=== PATIENT | male | born 1965 | race Caucasian/White ===

== ENCOUNTER 2017-01-21 12:34 | Inpatient (IN) | payer OTHER ==
[~2017-01-21] VITALS: Ht 193 cm; Wt 136.4 kg
[2017-01-21 12:54] VITALS: BP 148/100; PULSE 81; RESP 16; O2SAT 96
[2017-01-21] MEDS ORDERED: Piperacillin-Tazo 3.375 Gm Inj 3.375 GM in Dextrose 5% Minibag Plus 50 ML IV ONE (13:05)
[2017-01-21] MEDS ORDERED: Vancomycin Dose per Pharmacist XX ONE (13:05)
--- NOTE | 2017-01-21 13:07 | ED.REPORT ---
HPI-Extremity Problem Upper Date of Service Jan 21, 2017 ED Provider: Michael Erickson MD Pt is a 51 year old male with a hx of Hep C and HTN presenting to the ED from his PCP with an infection of the left olecranon bursa for IV antibiotics. Pt is scheduled for surgery tomorrow to drain the abscess. Pt injured the elbow about a year ago, and has had intermittent swelling and pain. Denies fever or any other symptoms at this time. Pt went to 2 days ago and had an I&D and cultures which showed positive for Propionibacterium acnes. Nursing Notes Stated Complaint: SENT TO ER FROM DR/PRE OP Chief Complaint: Extremity Trauma Nursing Notes Reviewed: Yes Allergies: Coded Allergies: No Known Allergies (Unverified Allergy, Unknown, 10/28/14) Scheduled Allopurinol (Allopurinol) 300 Mg Tablet 300 MG PO DAILY Bupropion ER (Bupropion ER) 150 Mg Tablet.er 150 MG PO DAILY Calcium Carbonate/Vitamin D3 (Calcium 500 + Vit D Caplet) 1 Each Tablet 1 EACH PO DAILY Multivitamin (Multivitamins) 1 Each Capsule 1 EACH PO DAILY Testosterone Cypionate (Depo-Testosterone) 200 Mg/1 Ml Depoinj 1.5 ML IM [id number] General Time Seen by MD: 12:50 Chief Complaint Arm injury left Hx Obtained From: Patient Arrived By: Walk-in Onset Occurred: 1 week ago Symptom Duration: Intermittent Location: : Elbow left Quality: Painful Severity: Current: Moderate Severity: Maximum: Severe Associated with: Reports: Swelling Recent Healthcare: No recent hospitalization, Recent doctor visit Similar Sx Previous: Yes Past Medical History Past Medical History healthy Past Surgical History L4 L5 laminectomy Family History n/a Smoking History Current Every Day Smoker, Light Tobacco Smoker Ambulatory Status Independent Review of Systems Constitutional: Denies: Fever, Weakness - generalized Skin: Reports Rash, Reports Swelling Complete sys rev & neg: except as marked. Respiratory: Denies: Shortness of breath GI: Denies: Vomiting Physical Exam Initial Vital Signs Vital Signs (First) Date Time Temp Pulse Resp B/P Pulse Ox O2 Delivery O2 Flow Rate FiO2 01/21/17 12:54 36.8 81 16 148/100 96 Room Air Initial VS: Reviewed Head / Eyes: Atraumatic, Normocephalic, PERRL ENT: Mucous membranes moist, Conjunctiva normal, No scleral icterus Respiratory: Breath sounds normal, Clear to auscultation, No respiratory distress Cardiovascular: Regular rate & rhythm, Heart sounds normal, Intact distal pulses Abdomen / GI: Soft, Non-tender, No guarding, No rebound, No distention Lower Extremities: Vascular intact, Neuro intact, No swelling, No tenderness Neurologic: Alert, Oriented, Nonfocal Psychiatric: Mood/affect normal, Behavior normal, Normal thought content General/Constitutional: Awake, Alert, No acute distress, Well appearing Doesn't appear overtly toxic Skin: Warm, Dry, Intact Left elbow large septic olecranon bursitis. Small areas of necrosis around the center of the wound. Surrounding cellulitis Interpretation & Diagnostics Interpretation & Diagnostics: Patient had outpatient cultures at the urgent care in recent weeks, these are not visible in our EMR Repeat aspiration performed today at orthopedic office, sent for testing, pending Plain radiographs performed today in the office, not repeated Cultures positive for Propionibacterium acnes Lab Results Interpretation Result Diagram: 01/21/17 1322 01/21/17 1322 Test 01/21/17 13:22 White Blood Count 9.7th/mm3 (3.8-10.1) Red Blood Count 5.50mil/mm3 (4.40-5.80) Hemoglobin 17.3g/dL (13.8-17.2) Hematocrit 49.5% (41.0-50.0) Mean Corpuscular Volume 90.0fL (81-100) Mean Corpuscular Hemoglobin 31.5pg (27.0-35.0) Mean Corpuscular Hemoglobin Concent 34.9% (32.0-37.0) Red Cell Distribution Width 13.8% (12.3-15.4) Platelet Count 321bil/L (150-400) Neutrophils (%) (Auto) 55.1% (40-74) Lymphocytes (%) (Auto) 33.1% (14-46) Monocytes (%) (Auto) 8.4% (4-12) Eosinophils (%) (Auto) 2.6% (0-5) Basophils (%) (Auto) 0.3% (0-3) Erythrocyte Sedimentation Rate 1mm/hr (0-30) Sodium Level 135mEq/L (134-144) Potassium Level 4.2mEq/L (3.5-5.2) Chloride Level 98mEq/L (97-108) Carbon Dioxide Level 23mmol/L (18-29) Blood Urea Nitrogen 15mg/dL (6-24) Creatinine 0.78mg/dL (0.76-1.27) Estimat Glomerular Filtration Rate 111mL/min (>59) Glucose Level 126mg/dL (60-99) Lactic Acid Level 1.0mmol/L (0.4-2.0) Calcium Level 10.0mg/dL (8.5-10.1) Total Bilirubin 0.5mg/dL (0.0-1.2) Aspartate Amino Transf (AST/SGOT) 24U/L (0-50) Alanine Aminotransferase (ALT/SGPT) 42U/L (0-44) Alkaline Phosphatase 49U/L (25-150) C-Reactive Protein 1.3mg/dL (0.0-0.5) Total Protein 8.3g/dL (6.4-8.4) Albumin 4.1g/dL (3.4-5.0) Lab Results Interpretation: CBC normal CMP normal ESR normal CRP elevated Blood culture x2 Lactic acid normal Re-Eval/Medical Decision Med Decision/Clinical Course This is a 51-year-old male sent in from the orthopedic office for IV antibiotics , admission, and infectious disease consultation for a septic olecranon bursitis of the left elbow. Patient describes a previous history of traumatic bursitis intimately over the past year, but in recent weeks has developed redness swelling and pain and was seen at urgent care where the bursa was tapped , and grew only skin ivan. However the recent days of increasing redness and discomfort, the patient is again seen in urgent care, and then seen an orthopedist today. Radiographs are obtained as an outpatient, and the elbow was tapped today by the orthopedist with 10-12 mL appearing material obtained. There is surrounding cellulitis, and the patient was sent to the ED for initiation of IV antibiotic, admission, and a plan for operative drainage tomorrow. She has no previous history of MRSA. Denies fevers chills or systemic symptoms. Comorbidities of mild hepatitis C. On exam he is nontoxic clinic well-appearing, but he does have a septic olecranon bursitis small areas of necrosis over the S 10 skin MRSA, his artery been aspirated today. There is no evidence of a sai septic joint, the arm is neurovascularly intact. There are no additional lesions. The patient was started on Zosyn and vancomycin, as received titrated pain medicine. As requested by the orthopedist infectious diseases been consulted. The patient is being admitted to the hospitalist service, and we made nothing by mouth over midnight for planned operative intervention tomorrow. Source of Hx: Old records Re-Evaluation/Progress : Time of Eval: 14:10 Patient Status: Condition improved Re-Evaluation/Progress Note: Discussed plan for admission. Pt understands and agrees. Consultation #1: Referral / Consult Name: Pierre Carter MD Call Returned at: 13:59 Development And Planning Engineer: Agrees with plan Note: Infectious Disease Consultation #2: Referral / Consult Name: Giovani Alejandro MD Consulted With: Orthopedic Call Returned at: 12:00 Note: Discussed the pt's history. Consultation #3: Referral / Consult Name: Edyta Rose MD Consulted With: Hospitalist Call Returned at: 13:45 Development And Planning Engineer: Will see patient, Agrees with plan, Accepts admit Differential Diagnosis: Negative: Abrasion, Colles' fracture, Compartment syndrome, Deep vein thrombosis, Elbow dislocation, Elbow fracture, Gamekeepers thumb, Humerus fracture, Open fracture Counseled Regarding: Diagnosis, Lab results, Need for follow-up, When/why to return to ED Discharge & Departure Impression: Primary Impression: Septic olecranon bursitis of left elbow Disposition: ADMITTED TO HOSPITAL Discharge Condition All VS Reviewed: Yes Condition: Improved Referrals: Baljit Reynoso DO (PCP) Stephanie Attestation Portions of this note were transcribed by Tari Charlton. I, Dr. Erickson personally performed the history, physical exam and medical decision-making; I reviewed and confirmed the accuracy of the information in the transcribed note. Signed by: Stephanie George, 01/21/17 at 1410. copies to: Baljit Reynoso Matthew F MD Jan 21, 2017 13:07 TARI CHARLTON Jan 21, 2017 13:34
[2017-01-21] MEDS ORDERED: Vancomycin Inj 2,000 MG in 0.9% Sodium Chloride 500 ML IV ONE (13:35)
[2017-01-21] MEDS ORDERED: Ondansetron 2 mg/mL 2 mL Inj IVPUSH ONE (13:35)
[2017-01-21] MEDS ORDERED: HYDROmorphone 0.5 mg/0.5 mL iSecure Syringe IVPUSH PRN (13:35)
[2017-01-21 13:37] LABS: BASOPHILS % (AUTO) 0.3 % (0-3); EOSINOPHILS % (AUTO) 2.6 % (0-5); MONOCYTES % (AUTO) 8.4 % (4-12); Mean Corpuscular Hemoglobin 31.5 pg (27.0-35.0); NEUTROPHILS % (AUTO) 55.1 % (40-74); Platelet Count 321 bil/L (150-400)
[2017-01-21] MEDS ORDERED: TEST200V IM (13:55)
[2017-01-21] MEDS ORDERED: ALLO300T2 PO (13:55)
[2017-01-21] MEDS ORDERED: BUPR150T12 PO (13:55)
[2017-01-21] MEDS: Vancomycin Dose per Pharmacist XX SCH (13:55)
[2017-01-21] MEDS ORDERED: Ondansetron 2 mg/mL 2 mL Inj IVPUSH PRN (13:55)
[2017-01-21] MEDS ORDERED: MULT1CAP33 PO (13:57)
[2017-01-21] MEDS ORDERED: CHOL5000 PO (13:57)
[2017-01-21] MEDS ORDERED: CALC-78 PO (14:02)
[2017-01-21 14:03] LABS: ERYTHROCYTE SEDIMENTATION RATE 1 mm/hr (0-30)
[2017-01-21] MEDS: HYDROcodone-APAP 5-325 mg Tablet PO PRN ×3 (14:20→22:53)
--- NOTE | 2017-01-21 15:06 | PCM.HPMED ---
Subjective Date of Service Jan 21, 2017 Primary Provider: Admitting Physician: Edyta Rose MD Primary Care Physician: Pierre Esteban DO Attending Physician: Edyta Rose MD Chief Complaint: Left olecranon bursitis, cellulitis History of Present Illness: 51-year-old male with hepatitis C from former cocaine use in , not treated presented with worsening left elbow pain and swelling. Patient first developed left elbow bursitis 1-1/2 years ago from minor trauma episode. It resolved with supportive treatment. Patient went to urgent care on December 25 with left elbow swelling and pain, minimal aspiration was done did not show any bacteria in the culture. Pt was given Clindamycin but didn't take it. Over the course, pain and swelling got worse, pt went to urgent care again 2days ago, pt was asked to start Clindamycin, so took it so far without GI problems. However, swelling is still worsening, burning pain, warmth, pt came to see Ortho, , aspiration of good amount drained, pt was sent to ED for further eval and tx. Of note, pt was planned to have EGD prior to hep C tx, denied having GIB. ED VSS, afebrile, pt is not toxic looking, pt received vancomycin zosyn. upon interview, ROS: pt denied any fever, chills throughout the course, never had MRSA infection , otherwise fairly doing well, good appetite, no n/v/c/d. no abdominal pain, no complaints, no travel/sick contacts. Review of Systems: Pertinent positives as noted in history of present illness. All other systems were reviewed and are negative Allergies Coded Allergies: No Known Allergies (Unverified Allergy, Unknown, 10/28/14) Home Medications Takes Wellbutrin PMH As described above in history of present illness Surgical History Multiple bone surgeries Surgery due to closed head injury, broken orbit, broken jaw L4-L5 laminectomy Surgery for bone spur at the right calf Right hand tendon repair Family History No history of CAD Social History Hx Alcohol Use: Yes (quit alcohol in August) Hx Substance Use: No (former cocaine abuse in early 20s) Hx Tobacco Use: Yes (smoking half pack per day for 30 years) Smoking Status: Current Every Day Smoker, Light Tobacco Smoker Additional Information 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 s/p 2nd aspiration from ortho clinic 01/21. no SIRS, labs were unremarkable for systemic infection. Clinically worsened with 2days of clindamycin. -s/p vanc,zosyn, will continue vancomycin, ceftriaxone iv -start naproxen 500mg bid, -awaits culture, gram stain, cell count from ortho clinic Chronic, stable hep C, LFTs normal, follow up with PCP/GI for tx dispo:Patient will be admitted with inpatient status with expectation of inpatient therapy for more than 2 midnights diet:general, NPO after MN dvt ppx:LMWH Full code Time spent 35min Edyta Rose MD Jan 21, 2017 15:06
[2017-01-21 15:24] VITALS: BP 159/116; PULSE 71; RESP 20; O2SAT 97
--- NOTE | 2017-01-21 15:30 | NUR ---
pt admitted to room 1025 from ER. appears comfortable, ambulatory, left elbow quite swollen and with erythema, small area of scab. not draining at this time.
[2017-01-21 15:52] VITALS: PULSE 66
--- NOTE | 2017-01-21 16:16 | PCM.CONPHA ---
Subjective Date of Service: Jan 21, 2017 Left olecranon bursitis, cellulitis Reason for Pharmacy Consult: Vancomycin Dosing Objective Vital Signs Date Time Temp Pulse Resp B/P Pulse Ox O2 Delivery O2 Flow Rate FiO2 01/21/17 15:52 66 01/21/17 15:24 36.3 71 20 159/116 97 Room Air 01/21/17 12:54 36.8 81 16 148/100 96 Room Air Weight (Kilograms): 136.36 Height (Feet): 6 Height (Inches): 4 Test 01/21/17 13:22 White Blood Count 9.7th/mm3 (3.8-10.1) Red Blood Count 5.50mil/mm3 (4.40-5.80) Hemoglobin 17.3g/dL (13.8-17.2) Hematocrit 49.5% (41.0-50.0) Mean Corpuscular Volume 90.0fL (81-100) Mean Corpuscular Hemoglobin 31.5pg (27.0-35.0) Mean Corpuscular Hemoglobin Concent 34.9% (32.0-37.0) Red Cell Distribution Width 13.8% (12.3-15.4) Platelet Count 321bil/L (150-400) Neutrophils (%) (Auto) 55.1% (40-74) Lymphocytes (%) (Auto) 33.1% (14-46) Monocytes (%) (Auto) 8.4% (4-12) Eosinophils (%) (Auto) 2.6% (0-5) Basophils (%) (Auto) 0.3% (0-3) Erythrocyte Sedimentation Rate 1mm/hr (0-30) Sodium Level 135mEq/L (134-144) Potassium Level 4.2mEq/L (3.5-5.2) Chloride Level 98mEq/L (97-108) Carbon Dioxide Level 23mmol/L (18-29) Blood Urea Nitrogen 15mg/dL (6-24) Creatinine 0.78mg/dL (0.76-1.27) Estimat Glomerular Filtration Rate 111mL/min (>59) Glucose Level 126mg/dL (60-99) Lactic Acid Level 1.0mmol/L (0.4-2.0) Calcium Level 10.0mg/dL (8.5-10.1) Total Bilirubin 0.5mg/dL (0.0-1.2) Aspartate Amino Transf (AST/SGOT) 24U/L (0-50) Alanine Aminotransferase (ALT/SGPT) 42U/L (0-44) Alkaline Phosphatase 49U/L (25-150) C-Reactive Protein 1.3mg/dL (0.0-0.5) Total Protein 8.3g/dL (6.4-8.4) Albumin 4.1g/dL (3.4-5.0) Assessment/Plan Assessment/Plan VANCOMYCIN MANAGEMENT A\ 51yo M admitted with septic necrotic bursitis and cellulitis SCr=0.78 GFR= 177 WBC =9.7 Recieved Vancomycin 2000mg IV x1 at 1458 01/21 P\ Will continue Vancomycin 1000mg IV Q8H with first dose at 01/21 will monitor Scr daily Vancomycin trough before the 4th dose 01/22 1430 David Leyva [facility] Jan 21, 2017 16:16
[2017-01-21] MEDS ORDERED: PIPERACILLIN TAZOBACTAM IV ONE (17:11)
--- NOTE | 2017-01-21 18:10 | NUR ---
Vtach pt had 5 beats Vtach without symptoms, he had previously been in SR 60s and continued in SR 60s afterwards. Dr Rose notified per cook page
[2017-01-21 19:45] VITALS: BP 162/94; PULSE 65; RESP 17; O2SAT 94
--- NOTE | 2017-01-21 20:35 | CONS ---
[address] [address] CONSULTATION REPORT PATIENT: KARI BACA : 1965 MR#: [id number] ADMIT: 01/21/2017 JOB ID: [id number] DATE OF SERVICE: 01/21/2017 ORTHOPEDIC CONSULTATION: CHIEF COMPLAINT: This is a 51-year-old male with a left elbow septic olecranon bursitis. The patient's history is pertinent for the fact that he does have hepatitis C and he is a former cocaine user from the . He states that he did strike his elbow about one and half years ago on a tile floor and since that time has had intermittent bursitis in the left elbow. He was seen in the Urgent Care a couple of weeks ago where they aspirated the bursa, sent that for culture, and it grew propionibacterium acnes bacteria. The patient was placed on clindamycin. He initially did improve and then started developing some necrotic tissue on the olecranon skin. He was then seen in the office today with expanding cellulitis and necrotic tissue in the skin over the olecranon bursa. The patient did not have any evidence for fever, chills, or any issues with hypotension. I did aspirate his elbow olecranon bursa in the clinic today for 12 cc of very thick, blood-tinged, purulent type of PAST MEDICAL HISTORY: MEDICATIONS: The patient takes Wellbutrin. PAST SURGICAL HISTORY: He had an L4-5 laminectomy, a prior bone spur removed from his right leg, right hand tendon repair. FAMILY HISTORY: No history of coronary artery disease or major illnesses. SOCIAL HISTORY: Lives with . 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 The patient also does smoke a half pack per day. PHYSICAL EXAMINATION: A 193 cm, 136 kg male. Temperature is 36.8, pulse 81, respirations 16, blood pressure 148/100, pulse ox 96. The patient is alert and oriented. Left elbow olecranon area: Very swollen olecranon bursa. There is some necrotic skin tissue. I did aspirate the left olecranon bursa under sterile technique in the office for 12 cc of cloudy purulent type blood-tinged fluid. This was sent for analysis. The cell count and differential for the bursal fluid analysis was 94% PMNs, most consistent with infection, but no bacteria were seen. The patient has however been on clindamycin. X-rays of the left elbow: No fractures. There is soft tissue swelling over the olecranon bursa. Laboratory testing shows a white count 9700, hemoglobin 17.3, hematocrit 49.5, platelet count 321,000. Sodium 135, potassium 4.2, chloride 98, CO2 of 23, BUN 15, creatinine 0.78. Glucose 126 random. C-reactive protein 1.3. IMPRESSION: Septic left olecranon bursitis. PLAN: The patient will be kept n.p.o. after midnight and plans for surgical incision, drainage, and excision of any necrotic tissue. I have contacted Dr. Carter and he will see the patient in infectious disease consultation. The patient is aware that he will require dressing changes to allow that wound to heal in by secondary intention. Any necrotic tissue will need to be excised. He may require more than one surgical debridement. I have explained the risks and benefits of surgery to the patient. He is aware of the risks for bleeding, continued infection, pain and stiffness, and potential for requirement for additional surgical intervention. There is also the potential for further skin breakdown and damage to surrounding neurovascular structures. Surgical consent has been signed. CC: [facility]
[2017-01-21] MEDS ORDERED: 0.9% Sodium Chloride 250 ML ONE (21:31)
[2017-01-21] MEDS: cefTRIAXone Inj 2,000 MG in Dextrose 5% Minibag Plus 50 ML IV SCH (21:41)
[2017-01-21] MEDS: Vancomycin Inj 1,000 MG in IV Premix 1 EACH IV SCH (22:42)
[2017-01-22] VITALS (14 sets, daily range): BP systolic 124–161; BP diastolic 74–101; PULSE 56–94; RESP 12–20; O2SAT 94–100
[2017-01-22] MEDS: Vancomycin Inj 1,000 MG in IV Premix 1 EACH IV SCH ×4 (03:49→16:32)
[2017-01-22] MEDS: HYDROcodone-APAP 5-325 mg Tablet PO PRN ×4 (03:59→22:16)
[2017-01-22] MEDS ORDERED: Lactated Ringer's 1,000 ML IV SCH ×2 (05:00→11:03)
--- NOTE | 2017-01-22 05:35 | NUR ---
Pain Patient's elbow pain has been well managed with 2 Jackson. Patient's elbow began seeping serosanguinous fluid early on in the shift. The elbow was flushed with saline and dressed with an ABD and hypafix tape. Patient NPO since midnight. Tele sinus wale 57. vitals stable.
[2017-01-22] MEDS: Vancomycin Dose per Pharmacist XX SCH (08:30)
[2017-01-22] MEDS ORDERED: Vancomycin Serum Trough XX ONE ×2 (09:00→15:00)
--- NOTE | 2017-01-22 10:30 | NUR ---
OFF UNIT Pt off unit with OR staff to OR at around 1015. A&Ox3, vitals stable, slight anxiety for procedure. Pt off tele and panel monitor aware, Pt SL from LR. Rubi given to FITTER/WELDER to be hung in OR. Pt had been given pain medication before shower at 0830.
--- NOTE | 2017-01-22 10:32 | PCM.PNMED ---
Subjective Date of Service Jan 22, 2017 Subjective abscess was opened spontaneously yesterday, pain was controlled, denied fever, chills, awaits I&D today Exam Vital Signs Vital Sign - Last Date Time Temp Pulse Resp B/P Pulse Ox O2 Delivery O2 Flow Rate FiO2 01/22/17 10:13 CPAP/BIPAP 01/22/17 09:42 36.7 64 17 156/91 98 Intake and Output 01/21/17 01/21/17 01/22/17 Cumulative From/Thru 15:00 23:00 07:00 01/21/17 12:54 - 01/22/17 06:42 Intake Total 300 ml 1876 ml 2176 ml Output Total 250 ml 1050 ml 1300 ml Balance 50 ml 826 ml 876 ml Intake Oral 300 ml 700 ml 1000 ml IV Total 1176 ml 1176 ml Output Urine Total 250 ml 1050 ml 1300 ml # Bowel Movements 0 0 Exam NAD, comfortably laying down on the bed no JVD, MMM, no LAD RRR, nl s1, s2 no mrg CTAB, no w,c S,ND,NT,normoactive BS+ left elbow: tender, swollen, tender, sterilely dressed IVs and Medications Medications Reviewed: Medications were reviewed in detail Lab and Diagnostics Result Diagram: 01/21/17 1322 01/22/17 0530 Assessment & Plan Acute, active Left elbow olecranon bursitis, cellulitis, POA, s/p 1st aspiration on 12/25 sterile. s/p 2nd aspiration from ortho clinic 01/21. no SIRS, labs were unremarkable for systemic infection. Clinically worsened with 2days of clindamycin. -pt clinically remained stable, it seemed wound was complicated with abscess opened up overnight, -appreciate ortho input, plan for I&D today -s/p vanc,zosyn, will continue vancomycin, ceftriaxone iv, refer to , appreciate more input. -start naproxen 500mg bid, -awaits culture, gram stain, cell count from ortho clinic and surgical culture today Chronic, stable hep C, LFTs normal, follow up with PCP/GI for tx dispo:likely 2-3more days, pending diet:general, dvt ppx:LMWH Full code VTE Mechanical Devices: Intermittant Pneumatic CD Time spent 35min Edyta Rose MD Jan 22, 2017 10:32
--- NOTE | 2017-01-22 10:57 | PCM.HPANE ---
Patient Data Date of Service: Jan 22, 2017 Surgeon Admitting Provider:Edyta Rose MD Attending Provider:Edyta Rose MD Primary Care Physician:Pierre Esteban DO Other Provider: Reason for Visit Septic Olecranon Bercitis Ht/WT & BMI Height (Feet): 6 Height (Inches): 4 Weight (Kilograms): 136.36 Body Mass Index Allergies Coded Allergies: No Known Allergies (Unverified Allergy, Unknown, 10/28/14) Past Anesthesia History Anesthesia History: Denies:: Anesthesia Reactions, Fam Anesthesia Reaction, Malignant Hyperthermia Diabetes History Hx Diabetes?: No MRSA MRSA: No Medications Hypertension Medication: No Home Meds Incl Beta Lady: No Reported Medications Calcium Carbonate/Vitamin D3 (Calcium 500 + Vit D Caplet)1 Each Tablet1 Each PO DAILY 01/21/17 Multivitamin (Multivitamins)1 Each Capsule1 Each PO DAILY 01/21/17 Bupropion ER 150 Mg Tablet.er150 Mg PO DAILY 01/21/17 Testosterone Cypionate (Depo-Testosterone)200 Mg/1 Ml Depoinj1.5 Ml IM [id number] 01/21/17 Allopurinol 300 Mg Inoodb220 Mg PO DAILY 01/21/17 Discontinued Reported Medications Cholecalciferol (Vitamin D3) (Vitamin D3)5,000 Unit Capsule5,000 Unit PO DAILY 01/21/17 History History of ENT Problems?: No HEENT History: Denies:: Abnormal Airway Denture Type: None Teeth Condition: Within Normal Limits Hx of Heart Problems?: No Cardiovascular History: Denies:: Congestive Heart Failure Hypertension Hx of Respiratory Problem?: Yes Respiratory History: Denies:: Tuberculosis Other Resp Pertinent History: BILLY, on cpap Hx Neurologic Problems?: No Hx of GI Problems?: Yes Hx of Problems?: No Male Hx: Denies:: Prostate Problems Scrotal Mass Testicular Surgery Other Skin Pertinent History: currently presents with lt.elbow bursitis. "small areas of necrosis around the center of the wound, surrounding cellulitis" Hx Musculoskeletal Problems?: Yes Musculoskeletal History: Positive for:: Back Injury (hx of L4.L5 laminectomy) Hx of Psycho/Social Problems?: No Hx Surgeries?: Yes (orbital repair (1988), L4-5 discectomy) Hx Any Other Health Problems?: No Other History: Positive for:: Hospitalization (for surgeries) Denies:: Cancer Thyroid Disease History Blood Transfusions: Positive for:: Accept Blood Products? Denies:: Blood Transfusions Hx Diabetes: No Hx Alcohol Use: Yes (quit alcohol in August)Hx Substance Use: No (former cocaine abuse in early 20s) Smoking Status: Current Every Day Smoker Light Tobacco Smoker Have You Smoked inLast 12 mo: YesApprox How Many Cigarettes/day: "less than a pack" Stop/Bang Treated for Sleep Apnea?: Yes Do You Have a CPAP Machine?: Yes ( will bring) S-Snoring: Do You Snore Loudly: Yes T-Tired: feel tired, fatigued: No O-Obsered: Observed not breath: Yes P-Blood Pressure: treated: No B- Body Mass Index > 35 kg/m2: Yes A- Age over 50: Yes N- Neck Large Circumference: Yes G- Gender Male: Yes BILLY Total Score: 6 BILLY Risk Assessment: High Risk, =/>3 Yes BILLY Category 1: Yes Risk Assessment Category Category 1A: Patient has history of documented sleep apnea, and HAS NOT received any narcotic, sedative or anesthesia administration during this stay. Category 1B: Patient has history of documented sleep apnea, and HAS received any narcotic , sedative or anesthesia administration during this stay Category 2: Patient has SUSPECTED Obstructive Sleep Apnea, and HAS received any narcotic , sedative or anesthesia administration during this stay. Category 3: Patient has SUSPECTED Obstructive Sleep Apnea and HAS NOT received narcotic, sedative or anesthesia administration during this stay. Category 4: Outpatient in Procedural Areas with known sleep apnea or who screen positive for High Risk via the STOP/BANG questionnaire. Exam Exam Vital Signs Vital Signs Date Time Temp Pulse Resp B/P Pulse Ox O2 Delivery O2 Flow Rate FiO2 01/22/17 10:13 CPAP/BIPAP 01/22/17 09:42 36.7 64 17 156/91 98 Room Air 01/22/17 05:44 60 01/22/17 05:00 36.7 60 17 131/79 98 Room Air General Appearance: Alert, Oriented X3, Cooperative, No Acute Distress HEENT/AIRWAY: MP 2 Lungs: Clear to Auscultation, Normal Air Movement Heart: Exam Unremarkable, Regular Rate/Rhythm, No Murmurs/Rubs/Gallops Meds/Labs/Diagnostics Admission Meds Current Medications Piperacillin Sod/ Tazobactam Sod/ Dextrose/Water (Zosyn 3.375 Gm Inj/D5W Minibag Plus) 50 ml @ 100 mls/hr ONCE ONCE IV Last administered on 01/21/17 14:18; Start 01/21/17 at 13:05; Stop 01/21/17 at 13:34; Status DC Pharmacy Consult 1 ea 1 ea ONCE ONCE XX Last administered on 01/21/17 13:34; Start 01/21/17 at 13:05; Stop 01/21/17 at 13:29; Status DC Vancomycin HCl 2000 mg/Sodium Chloride 500 ml @ 250 mls/hr ONCE ONCE IV Last administered on 01/21/17 14:58; Start 01/21/17 at 13:35; Stop 01/21/17 at 15:34 ; Status DC Ceftriaxone Sodium 2000 mg/ Dextrose/Water 50 ml @ 100 mls/hr HS IV Last administered on 01/21/17 21:41; Start 01/21/17 at 21:00 Vancomycin/0.9 % Sod Chloride 1000 mg/Premix 200 ml @ 133.333 mls/hr Q6H IV Last administered on 01/22/17 03:49; Start 01/21/17 at 21:35; Stop 01/22/17 at 07:32; Status DC Lactated Ringer's 1,000 ml @ 120 mls/hr Q8H20M IV Last administered on 05:53; Start 01/22/17 at 05:00; Stop 01/22/17 at 13:19 Sodium Chloride (Normal Saline) 250 ml @ ud STK-MED ONCE .ROUTE Last administered on 01/21/17 21:42; Start 01/21/17 at 21:31; Stop 01/21/17 at 21:35 ; Status DC Labs Test 01/21/17 13:22 01/22/17 05:30 White Blood Count 9.7th/mm3 (3.8-10.1) Red Blood Count 5.50mil/mm3 (4.40-5.80) Hemoglobin 17.3g/dL (13.8-17.2) Hematocrit 49.5% (41.0-50.0) Mean Corpuscular Volume 90.0fL (81-100) Mean Corpuscular Hemoglobin 31.5pg (27.0-35.0) Mean Corpuscular Hemoglobin Concent 34.9% (32.0-37.0) Red Cell Distribution Width 13.8% (12.3-15.4) Platelet Count 321bil/L (150-400) Neutrophils (%) (Auto) 55.1% (40-74) Lymphocytes (%) (Auto) 33.1% (14-46) Monocytes (%) (Auto) 8.4% (4-12) Eosinophils (%) (Auto) 2.6% (0-5) Basophils (%) (Auto) 0.3% (0-3) Erythrocyte Sedimentation Rate 1mm/hr (0-30) Sodium Level 135mEq/L (134-144) Potassium Level 4.2mEq/L (3.5-5.2) Chloride Level 98mEq/L (97-108) Carbon Dioxide Level 23mmol/L (18-29) Blood Urea Nitrogen 15mg/dL (6-24) Estimat Glomerular Filtration Rate 111mL/min (>59) Glucose Level 126mg/dL (60-99) Lactic Acid Level 1.0mmol/L (0.4-2.0) Calcium Level 10.0mg/dL (8.5-10.1) Total Bilirubin 0.5mg/dL (0.0-1.2) Aspartate Amino Transf (AST/SGOT) 24U/L (0-50) Alanine Aminotransferase (ALT/SGPT) 42U/L (0-44) Alkaline Phosphatase 49U/L (25-150) C-Reactive Protein 1.3mg/dL (0.0-0.5) Total Protein 8.3g/dL (6.4-8.4) Albumin 4.1g/dL (3.4-5.0) Creatinine 0.77mg/dL (0.76-1.27) Plan Impression Patient chart reviewed, patient interviewed and anesthestic plan with risks, benefits, and alternatives discussed, and informed consent obtained. NPO per Anesth. Guidelines: Yes ASA Physical Status: ASA3 Severe Disease Anesthetic Plan: GA Bene/Risks/Altern/Consents: Yes HP Complete Prior to Induction: Yes Jarocho Vivas MD Jan 22, 2017 10:57
[2017-01-22] MEDS ORDERED: Lactated Ringer's 500 ML IV PRN (11:03)
[2017-01-22] MEDS ORDERED: Phenylephrine 10,000 mCg/mL Inj IVPUSH PRN (11:05)
[2017-01-22] MEDS ORDERED: Atropine 0.4 mg/mL Inj IVPUSH PRN (11:05)
[2017-01-22] MEDS ORDERED: MetoCLOpramide 5 mg/mL 2 mL Inj IVPUSH PRN (11:05)
[2017-01-22] MEDS ORDERED: Dexamethasone 4 mg/mL Inj IVPUSH PRN (11:05)
[2017-01-22] MEDS ORDERED: EPHEDrine Sulfate 50 mg/mL Inj IVPUSH PRN (11:05)
[2017-01-22] MEDS ORDERED: Labetalol 5 mg/mL 4 mL Inj IV PRN (11:05)
[2017-01-22] MEDS ORDERED: fentaNYL-PF 50 mCg/mL 2 mL Inj IVPUSH PRN (11:05)
[2017-01-22] MEDS ORDERED: Lactated Ringer's 1,000 ML IV ONE (11:05)
[2017-01-22] MEDS ORDERED: Ondansetron 2 mg/mL 2 mL Inj IVPUSH PRN (11:05)
[2017-01-22] MEDS ORDERED: hydrALAZINE 20 mg/mL Inj IVPUSH PRN (11:05)
[2017-01-22] MEDS ORDERED: Bupivacaine-MPF 0.5% 30 mL Inj INFILTRATE ONE (11:53)
[2017-01-22] MEDS ORDERED: Gentamicin 40 mg/mL 2 mL Inj IRRIGATION ONE (11:54)
--- NOTE | 2017-01-22 13:04 | NUR ---
Social Work- Screen Note Data & Assessment: EMR reviewed. Pt is a 51 year old male admitted 01/21/17 for septic olecranon bursitis per H&P. Pt's insurance is [facility]. Pt's PCP is Pierre Esteban DO. Pt was off unit to OR at the time SW attempted to meet with pt. 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 Pt is independent at baseline. Pt has no DPOA on file, SW to follow up with pt regarding this. Pt anticipated to discharge home with to transport via POV, no discharge needs anticipated. SW will continue to follow. Plan: Pt anticipated to discharge home with to transport via POV. No discharge needs anticipated, SW will continue to follow. BRIA Elise
--- NOTE | 2017-01-22 13:24 | PCM.ANEP1 ---
Post Anesthesia PACU Phase 1 Assessment Date of Service: Jan 22, 2017 Vital Signs 36.2 127/90 78 16 95% ra Anesthetic Administered: GA Level of Alertness: Awake, talking ENGEL's with Equal Strength: Yes Pain: No Nausea or Vomiting: No CV Function & Hydration Stable: Yes Airway Device: Oxygen Delivery: Room Air Lungs: Clear to Auscultation, Normal Air Movement Summary Arrived uncooperative / combative. With some redirection calmed down, PACU Phase 2 Assessment Complications: No Follow up Care: No Patient Instructions Provided: Yes Jarocho Vivas MD Jan 22, 2017 13:24
[2017-01-22] MEDS: HYDROmorphone 1 mg/mL Inj IVPUSH PRN ×2 (13:40→13:48)
[2017-01-22] MEDS ORDERED: Ondansetron 2 mg/mL 2 mL Inj ONE (15:52)
[2017-01-22] MEDS ORDERED: HYDROmorphone 2 mg/mL Inj ONE (15:52)
[2017-01-22] MEDS ORDERED: Succinylcholine Chloride 20 mg/mL 5 mL Inj ONE (15:52)
[2017-01-22] MEDS ORDERED: fentaNYL-PF 50 mCg/mL 2 mL Inj ONE (15:52)
[2017-01-22] MEDS ORDERED: Propofol 10,000 mCg/mL 20 mL Inj ONE (15:52)
--- NOTE | 2017-01-22 17:20 | CONS ---
[address] [address] CONSULTATION REPORT PATIENT: KARI BACA : 1965 MR#: [id number] ADMIT: 01/21/2017 JOB ID: [id number] DATE OF SERVICE: 01/22/2017 INFECTIOUS DISEASE CONSULTATION: I thank Dr. Giovani Alejandro for this timely consult. REASON FOR CONSULTATION: Left olecranon bursitis. HISTORY OF PRESENT ILLNESS: The patient is a 51-year-old gentleman with past medical problems including hepatitis C and gout. He reports that about a year and a half ago he fell in a hotel shower and/or tile bathroom and struck his left elbow. Since then, off and on he has had problems with swelling and tenderness involving the olecranon area of the elbow. These problems have tended to gradually worsen over time and especially in the past few months. The patient reports that about a month ago he underwent an elective aspiration of the olecranon bursa. The patient tells us that he was not aware of the results of that until just this Thursday, a couple of days prior to yesterday's admission. He was told that it grew an organism which turns out to be propionibacterium acnes and he was started on clindamycin, which he was taking for two days up until yesterday's ED visit, because of progressive swelling and tenderness of the left olecranon bursa which led to a visit with Dr. Giovani Alejandro of Orthopedics who performed another aspirate of the left olecranon bursa area. The patient was admitted through the ED following evaluation and aspiration by Orthopedics for a more definitive debridement of necrotic tissue, which was done earlier today. When we had a chance to see the patient this afternoon, he had just returned from the operating room and debridement of this necrotic left olecranon bursitis. The patient reports that even though his olecranon area has been swelling up sometimes to quite massive proportions, and has troubled him a great deal over the last month, he has been completely free of fevers chills, sweats, myalgias, arthralgias, or any other constitutional symptoms of infection. He has not taken any antibiotics up until January 19, when he was started on the clindamycin which he took for about 48 hours before yesterday's aspiration. The patient's olecranon bursa has never spontaneously drained, though after yesterday's aspiration by Dr. Alejandro there was some spontaneous drainage. Interestingly, the patient states his gout has been quiescent for many months as he continues to take allopurinol. PAST MEDICAL HISTORY: 1. Hepatitis C related to some youthful cocaine use when he was in his late teens and early 20s. Note that the patient is under evaluation and is going to have an endoscopy to proceed his Harvoni therapy for hepatitis C, and this procedure was actually planned for today but had to be canceled because of this hospitalization. 2. Gout with history of gouty arthritis. 3. Olecranon bursitis for 12-18 months, recurrent. SOCIAL HISTORY: The patient used cocaine in the very distant past. He is an ongoing cigarette smoker. He has not been an alcohol consumer since he found that he had hepatitis C, which is fairly recent. 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 FAMILY HISTORY: Negative for tuberculosis for first- and second-degree relatives. REVIEW OF SYSTEMS: The patient today has no headache, no visual complaints, no sore throat. No cough, shortness of breath, nausea, vomiting, diarrhea, dysuria, or any other untoward symptoms except his left elbow.Remainder of the ROS is negative PHYSICAL EXAMINATION: Reveals an afebrile gentleman, in no acute distress. He has just returned from the OR and so his whole left arm is wrapped in an enormous postop dressing which makes the physical exam a bit difficult. His current temp 36.7, he has been afebrile since admission. Pulse 68, respiratory rate 16, blood pressure 131/86, saturating well on room air. He is in no distress. He is awake and conversational. Head without trauma. Eyes without conjunctivitis. Oral cavity: No thrush or hairy leukoplakia. Neck without adenopathy. Lungs: Clear. Cardiac tones regular rate and rhythm. Abdomen: Soft, nontender. Somewhat obese. His BMI is 36. No suprapubic fullness. His left upper extremity as noted is wrapped in a large postop dressing. His right upper extremity appears normal. His lower extremities are without edema. No evidence of synovitis, no cellulitis, and no skin breakdown. He is neurologically intact. LABORATORIES: Include a white count of 9700. His sedimentation rate is an amazing 1. His creatinine is 0.78. Lactic acid 1.0. LFTs normal. CRP minimally elevated at 1.3. IMAGING: Includes an x-ray of the elbow which was done yesterday in the ER and showed some posterior soft tissue mottled appearance which could be cellulitis or edema according the radiologist. No osteo was seen. IMPRESSION: This patient has struggled off and on for the last year to year and a half with recurrent olecranon bursitis which eventually became so severe he came to the emergency department. I spoke to Dr. Giovani Alejandro on the phone about this case and she stated there was a great deal of necrotic tissue in and around the left olecranon area which made for a complex surgery apparently. She reports that she is very concerned that this is infected. That said, the patient has no symptoms whatsoever of infection and his laboratory work including a sedimentation of around 1 would seem to argue against that. Yesterday's aspirate was difficult to track down but it turns out that the day sample is at [facility] and is currently no growth at 24 hours. Today we have more surgical aspirates but the problem being with respect to the cultures that he was started on antibiotics a couple of days before he was admitted, which may have rendered our cultures falsely negative. RECOMMENDATIONS: 1. We have ordered a MRSA screen of the nares. If this is negative, I think that really lowers the possibility of MRSA to quite a low percentage and I would stop the vancomycin. 2. Will continue with ceftriaxone for the time being to cover MSSA and streptococcal organisms. 3. We await the cultures; both the culture from the aspirate on the as well as from today's debridement. 4. It is likely the patient will eventually be discharged with oral antibiotics depending on what is found in the culture from the bursa. 5. Will continue to follow this patient with you. Thank you very much. MARINE
[2017-01-22] MEDS: buPROPion SR 150 mg ER12 Tablet PO SCH (18:18)
[2017-01-22] MEDS: cefTRIAXone Inj 2,000 MG in Dextrose 5% Minibag Plus 50 ML IV SCH (21:57)
--- NOTE | 2017-01-22 22:05 | OP ---
[address] [address] OPERATIVE REPORT PATIENT: KARI BACA : 1965 MR#: [id number] ADMIT: 01/21/2017 JOB ID: [id number] DATE OF SURGERY: 01/22/2017 PREOPERATIVE DIAGNOSIS(ES): Septic left olecranon bursitis. ICD 10 code M71.122. POSTOPERATIVE DIAGNOSIS(ES): Septic left olecranon bursitis. ICD 10 code M71.122. PROCEDURE: 1. Incision and drainage, irrigation and debridement, left olecranon bursa. CPT code 58263. 2. Excision of necrotic olecranon bursa. CPT code 77679. SURGEON: Dr. Giovani Alejandro. ANESTHESIA: General. ESTIMATED BLOOD LOSS: 30 mL. DRAINS: None. COMPLICATIONS: None. SPECIMEN: Sent to pathology for culture. INDICATIONS: This is a 51-year-old male with recent diagnosis of hepatitis C and chronic issues with left olecranon bursitis. The patient evidently struck his elbow on some tile last year and since that time has been having intermittent bursitis. Developed cellulitis and bursitis and was aspirated in the urgent care on December 25, 2016 where cultures grew propionic acnes bacteria. The patient was placed on clindamycin and was improving. He then presented to the clinic on January 21, 2017 with increased inflammation, erythema and cellulitis of the left olecranon bursa with swelling in the bursa and some dry eschar tissue directly over the posterior aspect of the elbow. I aspirated the elbow for 12 cc of blood-tinged purulent type of material and sent that for culture and sensitivity and crystal analysis as well as cell count. The cell count came back 94% poly nuclears but no bacteria were seen. The patient had been on oral antibiotics. He was admitted to the hospital and placed on IV antibiotics. PROCEDURE IN DETAIL: Under adequate general anesthesia, the patient was placed in the lateral decubitus position with the arm over the side. The left arm was prepped and draped in sterile fashion. I did use a sterile tourniquet. The arm was elevated but not exsanguinated and tourniquet inflated to 250 mmHg. The patient had two areas of draining wound directly over the posterior aspect of the elbow. Each area measured about 5 x 7 mm. Through an elliptical incision, I excised the necrotic skin and draining tissue. The incision was carried down to the olecranon bursa. The patient had a moderate amount of necrotic, thickened olecranon bursa. It was also sharply excised. The debridement was carried down to include any abnormal necrotic tissue. After this was performed, the wound was thoroughly irrigated with antibiotic solution with IV gentamicin. After the bursa was thoroughly irrigated, clean gloves and clean drapes and clean instruments were utilized. Tourniquet was released. The patient had some localized bleeding that was controlled due to the hyperemic tissues. Due to the fact that the incision needed to be directly over the posterior aspect of the elbow to excise the necrotic tissue and the necrotic skin perforated holes, I did opt to primarily close the wound. A few subcuticular sutures of 3-0 Monocryl were utilized. The skin was reapproximated with interrupted horizontal mattress sutures of 3-0 nylon. Xeroform and dry sterile bulky dressing were applied, and the patient was placed in a well-padded long-arm posterior splint. The patient was taken to recovery room in stable condition. Sponge and needle count correct. PLAN: The patient will be followed in the hospital on IV antibiotics and with Infectious Disease with Dr. Carter as well as the hospitalist service. I have kept the patient in a posterior splint now so that hopefully the tissue will heal and it will not shift with excessive motion of the elbow. I did discuss the case with Dr. Alvin Barlow and he agreed that the excision of the necrotic tissue and primary closure would be in his best interest in order to try and allow this to heal. It is very difficult to have an olecranon bursa wound heal in by secondary intention. Both the patient and his are aware that this is a significant problem and that he still may require additional surgical intervention. The splint may be removed in the dressing change by one of the PAs or the on-call orthopedic surgeon over the weekend, perhaps on Thursday, for wound check. I would still then replace the dressing as well as at least the small posterior splint to keep the patient from rubbing and bumping that elbow and to also allow the soft tissue inflammation to subside. He will need to be on longer term IV and then oral antibiotics as per Infectious Disease.
--- NOTE | 2017-01-22 23:55 | PCM.PHAPRO ---
Progress Date of Service: Jan 22, 2017 Left olecranon bursitis, cellulitis Vancomycin Management Per Pharmacy: Indication: Septic Bursitis/Cellulitis Goal Trough: ~15 mg/dL Age: 51 yo Weight: 136 kg Labs: WBC 9.7 SrCr: 0.77 Est CrCl: ~120 mL/min Vancomycin Trough: 15.1 mg/dL Micro: Aspirate: Pending MRSA nasal screen: Negative for MRSA Additional Abx: Rocephin 2 GM IV Q24h Recommendation: Will change dose to 1250 mg IV Q8h as pt will likely start accumulating at Q6h interval Trough: Draw on 01/24 @ 0730 prior to 8 AM dose. Pharmacy to continue to monitor and adjust dose as needed. Thank You, Christina Hernandez, Pharm D. Christina Hernandez Jan 22, 2017 23:55
[2017-01-23 00:10] VITALS: BP 137/82; PULSE 60; RESP 17; O2SAT 91
[2017-01-23] MEDS ORDERED: Vancomycin Inj 1,250 MG in 0.9% Sodium Chloride 250 ML IV SCH (00:30)
[2017-01-23] MEDS: HYDROcodone-APAP 5-325 mg Tablet PO PRN ×3 (01:55→10:52)
--- NOTE | 2017-01-23 03:50 | NUR ---
Pain Patient using pillows to prop up arm to a comfortable position. Patient A&OX3. Vitals stable. Patient up independent in room. Patient manages his own CPAP while sleeping at night. Pain 7/10 managed with Botkins 2 tabs. IV Vancomycin is giving patient discomfort at IV site.
[2017-01-23 05:10] VITALS: BP 136/76; PULSE 64; O2SAT 94
[2017-01-23 06:18] LABS: BASOPHILS % (AUTO) 0.2 % (0-3); EOSINOPHILS % (AUTO) 2.6 % (0-5); MONOCYTES % (AUTO) 7.7 % (4-12); Mean Corpuscular Hemoglobin 31.9 pg (27.0-35.0); Mean Corpuscular Volume 91.9 fL (81-100); NEUTROPHILS % (AUTO) 53.6 % (40-74); Platelet Count 268 bil/L (150-400)
[2017-01-23 07:00] LABS: Magnesium 2.1 mg/dL (1.6-2.6); Phosphorus 3.1 mg/dL (2.5-4.9)
[2017-01-23 09:59] VITALS: PULSE 64
[2017-01-23] MEDS: buPROPion SR 150 mg ER12 Tablet PO SCH (10:52)
--- NOTE | 2017-01-23 12:12 | PROG NOTE ---
[address] [address] PROGRESS NOTE PATIENT: KARI BACA : 1965 MR#: [id number] ADMIT: 01/21/2017 JOB ID: [id number] DATE: 01/23/2017 INFECTIOUS DISEASE FOLLOWUP NOTE: REASON FOR FOLLOWUP: Probable septic left olecranon bursitis. INTERVAL HISTORY: The patient reports his arm is feeling much better. It is still in a large bulky dressing which the surgeons have asked not be changed except by them. The patient has no fevers, chills, or sweats. No pulmonary or GI symptoms. PHYSICAL EXAMINATION: Reveals an afebrile gentleman, temperature 36.3, pulse 64, blood pressure 136/76. He is saturating well on room air. He is in no acute distress. He states he is bored and would like to be discharged home. His oral cavity is negative. Lungs clear. Cardiac tones without any murmur. Abdomen negative. Arm is in a bulky left dressing. LABORATORIES: Include a white count of 8500, sed rate 1, creatinine 0.7. Micro includes two cultures; an aspirate from the that was done on an outpatient basis that is culture negative at 48 hours and an intraoperative culture from yesterday that is negative at 24 hours. In addition, we have a negative MRSA screen of the nares. Recall that the patient was on clindamycin for a couple of days though before the aspirate and three days before the surgery. IMPRESSION: This patient has a severe olecranon bursitis. I discussed this case in detail this morning with Dr. Alejandro and she is of the strong opinion that this was infected, whether not we have positive cultures or not. She said there was spontaneous drainage and an open wound she is sure it became colonized and/or infected. It is possible of course that his aspirate and intraoperative cultures were rendered negative by the three days or so of clindamycin he had orally before the cultures were obtained. RECOMMENDATIONS: 1. For now, will keep the patient on IV ceftriaxone. Dr. Alejandro would like to continue that for while as an outpatient so I think, if he goes home, I would have been come in daily to the [facility] until about on the , so January 31, in the [facility] for daily ceftriaxone. 2. Elicia has been DC'ed. 3. Once the patient goes home, he could resume clindamycin 300 mg p.o. q.i.d. and I would take that for a total of four weeks total, counting the first day of therapy as a January 20, so four weeks would take us until about February 15. 4. I will write the orders for outpatient ceftriaxone in the [facility] through January 31. 5. This patient should be followed up closely by Dr. Alejandro. I do not think I need to see this patient on an outpatient basis unless there are problems, but if there are there is no problem with contacting me. Thank you very much.
--- NOTE | 2017-01-23 14:13 | PCM.PNORTH ---
Subjective Date of Service: Jan 23, 2017 Visit Information: Reason for Visit Septic Olecranon Bercitis Surgery/Surgery Date Post-Op Day # Date of Admission: Jan 21, 2017 at 14:21 Hospital Day # Subjective Foundation awake and alert and in the hallway, dressed and ready to discharge to home today. Patient indicates he does not feel sick and is anxious to get home. Patient is aware that he has outpatient IV antibiotic therapy arranged for him and will report to the hospital 8:00 tomorrow to begin this. I have discussed with patient today that he has a follow-up appointment at our office and recommend on Thursday with Dr. Giovani Alejandro that this should be arranged by nursing prior to his discharge from the hospital today. Dr. Santos has okayed his discharge today and Dr. Carter has maybe arranges for antibiotics and the patient may discharge today as soon as he is seen by hospitalist service. Postop General: No Complaints, No Shortness of Breath, No Chest Pain, Good Appetite Pain Management: PO Objective Exam Objective Alert and oriented 3 and pleasant. Interoperative dressing is clean dry and intact Fingers wiggle and sensation are intact to left upper extremity distally. Dressing is from axilla to wrist and is not removed to check compartments per Dr. Giovani Alejandro. Vital Signs and I/O Vital Sign - Last Date Time Temp Pulse Resp B/P Pulse Ox O2 Delivery O2 Flow Rate FiO2 01/23/17 10:58 CPAP/BIPAP 01/23/17 09:59 64 01/23/17 05:10 36.3 136/76 94 01/23/17 00:10 17 Intake and Output 01/22/17 01/22/17 01/23/17 Cumulative From/Thru 15:00 23:00 07:00 01/21/17 12:54 - 01/23/17 05:09 Intake Total 1125 ml 1036 ml 1200 ml 5537 ml Output Total 20 ml 950 ml 1150 ml 3420 ml Balance 1105 ml 86 ml 50 ml 2117 ml Intake Oral 600 ml 1200 ml 2800 ml IV Total 1125 ml 436 ml 2737 ml Output Urine Total 950 ml 1150 ml 3400 ml Estimated Blood Loss 20 ml 20 ml # Bowel Movements 0 0 0 Lab & Micro Results Laboratory Tests Test 01/22/17 15:00 01/23/17 05:30 Vancomycin Level Trough 15.1mcg/mL White Blood Count 8.5th/mm3 (3.8-10.1) Red Blood Count 4.54mil/mm3 (4.40-5.80) Hemoglobin 14.5g/dL (13.8-17.2) Hematocrit 41.7% (41.0-50.0) Mean Corpuscular Volume 91.9fL (81-100) Mean Corpuscular Hemoglobin 31.9pg (27.0-35.0) Mean Corpuscular Hemoglobin Concent 34.8% (32.0-37.0) Red Cell Distribution Width 13.5% (12.3-15.4) Platelet Count 268bil/L (150-400) Neutrophils (%) (Auto) 53.6% (40-74) Lymphocytes (%) (Auto) 35.3% (14-46) Monocytes (%) (Auto) 7.7% (4-12) Eosinophils (%) (Auto) 2.6% (0-5) Basophils (%) (Auto) 0.2% (0-3) Sodium Level 138mEq/L (134-144) Potassium Level 4.3mEq/L (3.5-5.2) Chloride Level 102mEq/L (97-108) Carbon Dioxide Level 25mmol/L (18-29) Blood Urea Nitrogen 11mg/dL (6-24) Creatinine 0.70mg/dL (0.76-1.27) Estimat Glomerular Filtration Rate 125mL/min (>59) Glucose Level 110mg/dL (60-99) Calcium Level 8.9mg/dL (8.5-10.1) Phosphorus Level 3.1mg/dL (2.5-4.9) Magnesium Level 2.1mg/dL (1.6-2.6) Total Bilirubin 0.6mg/dL (0.0-1.2) Aspartate Amino Transf (AST/SGOT) 22U/L (0-50) Alanine Aminotransferase (ALT/SGPT) 33U/L (0-44) Alkaline Phosphatase 37U/L (25-150) Total Protein 6.5g/dL (6.4-8.4) Albumin 3.5g/dL (3.4-5.0) Procalcitonin 0.06ng/mL (0.00-0.08) Microbiology 01/22/17 MRSA (PCR) - Final, Complete 01/22/17 Gram Stain - Final, Resulted 01/22/17 Culture & Sensitivity - Preliminary, Resulted No growth to date 01/22/17 Anaerobic Culture, Resulted Pending Result Diagram: 01/23/17 0530 01/23/17 0530 General Appearance: Alert, Oriented X3, Cooperative, No Acute Distress Extremities: Other (nonweightbearing on the left upper extremity with no ballistic activity or heavy lifting pushing or pulling. Patient may carry a cell phone.) Postop Sensory Motor: Distal Motor Intact, Movement in Fingers, Distal Sensation Intact Catheters: None Assessment & Plan Impression Patient is a pleasant gentleman who has suffered from olecranon bursitis which ultimately became septic and has undergone a debridement of the left elbow area by Dr. Giovani Alejandro. Patient feels well now and has been set up for antibiotic therapy and is prepared for discharge to home today which has been okayed by Dr. Carter and Dr. Giovani Alejandro. Problems: Plan Postoperative day #1 from left olecranon necrotic tissue debridement performed on 01/22/[address] Giovani Alejandro. Nonweightbearing at the left upper extremity. Patient should not perform any ballistic activity with his arm and should maintain his splint and dressing in place until seen in office next week. He cannot do any lifting pushing or pulling. Patient may carry a cell phone in that hand. Continue by mouth pain medication as needed. Continue IV antibiotics and by mouth antibiotic therapy as arranged by Dr. Carter from infectious disease. Elevate the arm as needed for comfort and ice as needed for comfort. Do not get the dressing wet and do not remove the dressing or splint until seen in office. Patient has been instructed to call our office if any thing about his condition changes for the worse such as feeling ill, swelling in the hand, significantly increased pain or drainage from his bandages. Follow-up on 01/28/2017 at [facility] orthopedic clinic with Dr. Giovani Alejandro for wound check and bandage change. Orthopedics thanks hospitalist service for their help in the medical management of this patient. Orthopedics will clear patient for discharge at this time with the above- mentioned follow-up. Anticipate discharge to home today on 01/23/2017 by hospitalist service. Corbin Liriano PA-C Jan 23, 2017 14:13
[2017-01-23] MEDS ORDERED: CLIN-78 PO (14:51)
[2017-01-23] MEDS ORDERED: HYDR-4003 PO (14:52)
--- NOTE | 2017-01-23 14:56 | PCM.DIMED ---
Discharge Instructions Date of Service Jan 23, 2017 Dates of Hospitalization Jan 21, 2017 at 14:21 Discharge Diagnosis Discharge Diagnosis left necrotic Olecrenon Bursitis Medication Instructions Additional med instructions Please take Clindamycin 300mg orally four times per day until 02/15 total of four weeks course Diet Discharge Diet: No restrictions, Other Activity Discharge Activity: Other Call your provider Call your provider for: Fever or Chills Patient Instructions Patient Instructions You were hospitalized with left elbow bursa infection. You were treated with antibiotics and underwent surgery well. Please note that daily IV antibiotics were ordered, you have to come to MOC unit until 01/31 Please take oral antibiotics as as above Instruction from Orthopedic service Nonweightbearing at the left upper extremity. Patient should not perform any ballistic activity with his arm and should maintain his splint and dressing in place until seen in office next week. He cannot do any lifting pushing or pulling. Patient may carry a cell phone in that hand. Continue by mouth pain medication as needed. Continue IV antibiotics and by mouth antibiotic therapy as arranged by Dr. Carter from infectious disease. Elevate the arm as needed for comfort and ice as needed for comfort. Do not get the dressing wet and do not remove the dressing or splint until seen in office. Patient has been instructed to call our office if any thing about his condition changes for the worse such as feeling ill, swelling in the hand, significantly increased pain or drainage from his bandages. Follow-up on 01/28/[address] [facility] orthopedic clinic with Dr. Giovani Alejandro for wound check and bandage change. Follow-up plan Please follow up with as noted above Follow-up with PCP in: 2 weeks Edyta Rose MD Jan 23, 2017 14:56
--- NOTE | 2017-01-23 16:00 | NUR ---
Discharge pt discharged to home with at 1555. A&Ox3, ENGEL, VSS, Pain minimal - tolerable, IV dc'd intact, No telemetry, Hard copy script provided on dc medication clindamycin. Pt instructed on s/sx to seek medical attention for r/t elbow s/p surgery. Dressing to LUE CDI with CMS intact. All personal belongings in hand at dc. No questions/concerns left unanswered prior to discharge. Walked off unit to vehicle.
--- NOTE | 2017-01-23 16:16 | NUR ---
Social Work: Discharge D: EMR reviewed. Pt is on day 2 of hospitalization. Pt to discharge home with spouse to transport via POV, no discharge needs anticipated. SW will continue to follow. A: Pt who is independent at baseline. P: Pt to discharge home with spouseto transport via POV. No discharge needs anticipated, SW will continue to follow. BRIA Mchugh
[2017-01-24] MEDS ORDERED: Vancomycin Serum Trough XX ONE (07:30)
--- NOTE | 2017-01-25 14:05 | PCM.DC.MED ---
Discharge Summary Date of Service Jan 23, 2017 Dates of Hospitalization Date of Hospital Admission Jan 21, 2017 at 14:21 Date of Discharge: Jan 23, 2017 Providers: Admitting Physician: Edyta Harley MD Primary Care Physician: Pierre Esteban DO Attending Physician: Edyta Harley MD Diagnosis at Time of Discharge Diagnosis at Time of Discharge left necrotic Olecrenon Bursitis Consultations Orthopedic ID, Brief History HPI obtained on 01/21 51-year-old male with hepatitis C from former cocaine use in 1980s, not treated presented with worsening left elbow pain and swelling. Patient first developed left elbow bursitis 1-1/2 years ago from minor trauma episode. It resolved with supportive treatment. Patient went to urgent care on December 25 with left elbow swelling and pain, minimal aspiration was done did not show any bacteria in the culture. Pt was given Clindamycin but didn't take it. Over the course, pain and swelling got worse, pt went to urgent care again 2days ago, pt was asked to start Clindamycin, so took it so far without GI problems. However, swelling is still worsening, burning pain, warmth, pt came to see Regina, , aspiration of good amount drained, pt was sent to ED for further eval and tx. Of note, pt was planned to have EGD prior to hep C tx, denied having GIB. ED VSS, afebrile, pt is not toxic looking, pt received vancomycin zosyn. upon interview, ROS: pt denied any fever, chills throughout the course, never had MRSA infection , otherwise fairly doing well, good appetite, no n/v/c/d. no abdominal pain, no complaints, no travel/sick contacts. Hospital Course Acute dx Severe left elbow olecranon bursitis, cellulitis, 1st aspiration on 12/25 was sterile. s/p 2nd aspiration from ortho clinic 01/21, which was still negative till date. Pt didn't have SIRS, labs were unremarkable for systemic infection. patient underwent Excision of necrotic olecranon bursa, I&D. Surgical culture also didn't show any organism. Intra-op findings was strongly suggestive of infection per . pt was initially was on vanc,zosyn, switched to IV ceftriaxone through January 31, in the [facility] for daily ceftriaxone. Vancomycin has been DC'ed. pt also will continue clindamycin 300 mg p.o. q.i.d total of four weeks until 02/15, will follow up with in the clinic. Chronic dx hep C, LFTs normal, follow up with PCP/GI for tx Exam Vital Signs (Last) Date Time Temp Pulse Resp B/P Pulse Ox O2 Delivery O2 Flow Rate FiO2 01/23/17 10:58 CPAP/BIPAP 01/23/17 09:59 64 01/23/17 05:10 36.3 136/76 94 01/23/17 00:10 17 Exam NAD, comfortably laying down on the bed no JVD, MMM, no LAD RRR, nl s1, s2 no mrg CTAB, no w,c S,ND,NT,normoactive BS+ left elbow sterilely dressed Test 01/21/17 13:22 01/22/17 15:00 01/23/17 05:30 Erythrocyte Sedimentation Rate 1mm/hr (0-30) Lactic Acid Level 1.0mmol/L (0.4-2.0) C-Reactive Protein 1.3mg/dL (0.0-0.5) Vancomycin Level Trough 15.1mcg/mL White Blood Count 8.5th/mm3 (3.8-10.1) Red Blood Count 4.54mil/mm3 (4.40-5.80) Hemoglobin 14.5g/dL (13.8-17.2) Hematocrit 41.7% (41.0-50.0) Mean Corpuscular Volume 91.9fL (81-100) Mean Corpuscular Hemoglobin 31.9pg (27.0-35.0) Mean Corpuscular Hemoglobin Concent 34.8% (32.0-37.0) Red Cell Distribution Width 13.5% (12.3-15.4) Platelet Count 268bil/L (150-400) Neutrophils (%) (Auto) 53.6% (40-74) Lymphocytes (%) (Auto) 35.3% (14-46) Monocytes (%) (Auto) 7.7% (4-12) Eosinophils (%) (Auto) 2.6% (0-5) Basophils (%) (Auto) 0.2% (0-3) Sodium Level 138mEq/L (134-144) Potassium Level 4.3mEq/L (3.5-5.2) Chloride Level 102mEq/L (97-108) Carbon Dioxide Level 25mmol/L (18-29) Blood Urea Nitrogen 11mg/dL (6-24) Creatinine 0.70mg/dL (0.76-1.27) Estimat Glomerular Filtration Rate 125mL/min (>59) Glucose Level 110mg/dL (60-99) Calcium Level 8.9mg/dL (8.5-10.1) Phosphorus Level 3.1mg/dL (2.5-4.9) Magnesium Level 2.1mg/dL (1.6-2.6) Total Bilirubin 0.6mg/dL (0.0-1.2) Aspartate Amino Transf (AST/SGOT) 22U/L (0-50) Alanine Aminotransferase (ALT/SGPT) 33U/L (0-44) Alkaline Phosphatase 37U/L (25-150) Total Protein 6.5g/dL (6.4-8.4) Albumin 3.5g/dL (3.4-5.0) Procalcitonin 0.06ng/mL (0.00-0.08) Discharge Medications Discharge Medications Allopurinol (Allopurinol) 300 Mg Tablet 300 MG PO DAILY (Reported) Bupropion ER (Bupropion ER) 150 Mg Tablet.er 150 MG PO DAILY (Reported) Calcium Carbonate/Vitamin D3 (Calcium 500 + Vit D Caplet) 1 Each Tablet 1 EACH PO DAILY (Reported) Clindamycin (Clindamycin) 300 Mg Capsule 300 MG PO QID Prescribed by: EDYTA HARLEY MD Multivitamin (Multivitamins) 1 Each Capsule 1 EACH PO DAILY (Reported) Testosterone Cypionate (Depo-Testosterone) 200 Mg/1 Ml Depoinj 1.5 ML IM [id number] (Reported) As needed Hydrocodone-Acetaminophen 5-325 mg (Hydrocodone-Acetaminophen 5-325 mg) 1 Each Tablet 1-2 TABLET PO Q4H PRN PRN For Moderate Pain Prescribed by: EDYTA HARLEY MD Additional med instructions Please take Clindamycin 300mg orally four times per day until 02/15 total of four weeks course Followup Plan Disposition: home Follow-up plan Please follow up with as noted above Discharge Diet: No restrictions, Other Discharge Activity: Other Patient Instructions You were hospitalized with left elbow bursa infection. You were treated with antibiotics and underwent surgery well. Please note that daily IV antibiotics were ordered, you have to come to MOC unit until 01/31 Please take oral antibiotics as as above Instruction from Orthopedic service Nonweightbearing at the left upper extremity. Patient should not perform any ballistic activity with his arm and should maintain his splint and dressing in place until seen in office next week. He cannot do any lifting pushing or pulling. Patient may carry a cell phone in that hand. Continue by mouth pain medication as needed. Continue IV antibiotics and by mouth antibiotic therapy as arranged by Dr. Carter from infectious disease. Elevate the arm as needed for comfort and ice as needed for comfort. Do not get the dressing wet and do not remove the dressing or splint until seen in office. Patient has been instructed to call our office if any thing about his condition changes for the worse such as feeling ill, swelling in the hand, significantly increased pain or drainage from his bandages. Follow-up on 01/28/2017 at [facility] orthopedic clinic with Dr. Giovani Alejandro for wound check and bandage change. Follow-up with PCP in: 2 weeks Time spent 65min Edyta Harley MD Jan 23, 2017 16:52
--- NOTE | 2017-01-26 14:47 | PATH ---
SURGICAL PATHOLOGY Attending Physician:Aguila Culver CASE STATUS: Signed Out PATIENT NAME: KARI BACA PID: [id number] : 1965 DATE COLLECTED:01/22/2017 00:00 SPECIMEN: Bursa CLINICAL HISTORY: SEPTIC LEFT OLECRANON BURSA 1). LEFT ELBOW BURSA INFECTED FINAL DIAGNOSIS: 1.SPECIMEN DESIGNATED LEFT ELBOW BURSA INFECTED: SKIN AND UNDERLYING SOFT TISSUE WITH SEVERE DIFFUSE CHRONIC ACTIVE INFLAMMATION AND NECROSIS AND SCATTERED FOREIGN BODY-TYPE GIANT CELLS. NEGATIVE FOR MALIGNANCY AND SIGNIFICANT ATYPIA. ICD10 M70.32 GROSS DESCRIPTION: Received in formalin, labeled with the patient's name and "left elbow infected bursa" is one fragment of irregular-shaped barr tissue measuring 3.0 x 1.0 x 0.5 cm. The surgical margin is inked blue. The fragment is divided and totally submitted in one cassette. ([id number]) MICRO DESCRIPTION: See diagnosis. ICD-9 CODES: CPT CODES: 1: 62819 Electronically Signed Out Kendrick Choi MD [facility] [address], [place] [address] Technical component performed at [facility], [address] [place] [address] Ave[address], [place], [address]
== END 2017-01-23 15:53 | disposition home or self-care (01) | DRG 502 ==
LOC: SED 12:34 → OSC 14:21
PROVIDERS: ADMIT Internal Medicine; ATTEND Internal Medicine
PROC: 0MB40ZZ Excision of Left Elbow Bursa and Ligament, Open Approach (ICD-10-PCS; principal; 2017-01-22 10:00)
DX: M71.122 Other infective bursitis, left elbow (principal); I10 Essential (primary) hypertension; F17.210 Nicotine dependence, cigarettes, uncomplicated; B18.2 Chronic viral hepatitis C

== ENCOUNTER → 2017-03-03 | Day surgery (SDC) | payer OTHER ==
[~2017-03-03] VITALS: Ht 190.5 cm; Wt 136.1 kg
[~2017-03-03] MED LIST: ALLO300T2 PO; BUPR150T12 PO; CALC-78 PO; Lactated Ringer's 1,000 ML IV ONE; Lactated Ringer's 1,000 ML IV SCH; MULT1CAP33 PO; MetoCLOpramide 5 mg/mL 2 mL Inj IVPUSH PRN; Ondansetron 2 mg/mL 2 mL Inj IVPUSH PRN; Propofol 10,000 mCg/mL 20 mL Inj ONE; TEST200V IM
[2017-03-03 10:30] VITALS: BP 137/101; PULSE 64; O2SAT 95
[2017-03-03 11:00] VITALS: BP 124/82; PULSE 73; RESP 14; O2SAT 93
[2017-03-03 11:12] VITALS: BP 130/81; PULSE 66; RESP 16; O2SAT 97
--- NOTE | 2017-03-03 11:37 | ENDO ---
[address] [address] ENDOSCOPY PROCEDURE PATIENT: KARI BACA : 1965 MR#: [id number] ADMIT: 03/03/2017 JOB ID: [id number] DATE OF SERVICE: 03/03/2017 TYPE OF OPERATION: Esophagogastroduodenoscopy with biopsy. PREOPERATIVE DIAGNOSIS: Hepatitis C. POSTOPERATIVE DIAGNOSES: 1. Mild distal esophagitis. 2. Mild nonerosive gastritis. 3. No gastric or esophageal varices were seen. ANESTHESIA: Monitored anesthesia care. COMPLICATIONS: None. BLOOD LOSS: Minimal. DESCRIPTION OF PROCEDURE: After risks and benefits explained to the patient informed consent was obtained. After anesthesia administered, upper endoscope was inserted in mouth, intubating the esophagus, stomach, and second portion of duodenum. Mucosa carefully examined. After procedure was done, the scope was withdrawn, and procedure terminated. FINDINGS: Upon inspection of esophagus, esophagus was normal except there was mild distal esophagitis. No esophageal varices were seen. Z-line located 40 cm from incisors. Upon entering stomach there was mild nonerosive gastritis that was seen. No evidence of portal hypertension. No scalloping of the stomach and no evidence of gastric varices were seen on retroflexion. Duodenal bulb, first and second portion were normal. Biopsies taken of antrum and body of the stomach. There was mild nonerosive gastritis that was seen. IMPRESSIONS: 1. Mild nonerosive gastritis. 2. Mild distal esophagitis. 3. No gastric or esophageal varices were seen. RECOMMENDATION: 1. Await pathology results. 2. Omeprazole 20 mg by mouth once a day. 3. Follow up in GI clinic with Jake Dawkins as an outpatient.
--- NOTE | 2017-03-04 15:34 | PATH ---
SURGICAL PATHOLOGY Attending Physician:Baljit Hdz MD CASE STATUS: Signed Out PATIENT NAME: KARI BACA PID: [id number] : 1965 DATE COLLECTED:03/03/2017 16:33 SPECIMEN: 1: Stomach, Antrum, Biopsy 2: Gastric, Biopsy CLINICAL HISTORY: 1). ANTRAL BIOPSY 2). GASTRIC BIOPSY (RULE OUT H.PYLORI) FINAL DIAGNOSIS: 1. Antral Biopsy: Portions of gastric antral and body-type mucosa with chronic gastritis. No definite H. pylori organisms identified by H&E stain. Negative for intestinal metaplasia, dysplasia and malignancy. 2. Gastric Biopsy: Portions of gastric body-type mucosa with no diagnostic abnormality. No definite H. pylori organisms identified by H&E stain. Immunohistochemistry studies pending; results will be reported as an addendum. Negative for intestinal metaplasia, dysplasia and malignancy. ICD10: K29.7 GROSS DESCRIPTION: The specimen is received in two formalin filled containers labeled with the patient's name. 1). The specimen is labeled "antral" and consists of a 0.4 x 0.2 x 0.2 CM portion of tissue which is entirely submitted in cassette 1A. 2). The specimen is labeled "gastric" and consists of a 0.4 x 0.2 x 0.2 CM portion of tissue which is entirely submitted in cassette 2A. 03/03/2017DC ICD-9 CODES: CPT CODES: 1: 72603 2: 50132, 09672, 46607 PROCEDURE/ADDENDA: Immunohistochemistry SPI Interpretation {Not Entered} Results-Comments This is an addendum to report the results of immunohistochemistry. An immunohistochemical stain for Helicobacter was performed to evaluate for infectious organisms and is NEGATIVE. A control stain showed appropriate reactivity. *This test was developed and its performance characteristics determined by [employer]. It has not been cleared or approved by the U. S. Food and Drug Administration. The FDA has determined that such clearance or approval is not necessary. This test is used for clinical purposes. It should not be regarded as investigational or for research. Electronically Signed Out Agatha Rivera MD Electronically Signed Out Evelin Dumont MD [facility] [address] [place] [id number] Technical component performed at [facility], [address], [place], [address]
== END | disposition home or self-care (01) ==
LOC: END 00:22
PROVIDERS: ATTEND Internal Medicine Gastroenterology
DX: K29.50 Unspecified chronic gastritis without bleeding (principal); K20.8 Other esophagitis; B18.2 Chronic viral hepatitis C; G47.30 Sleep apnea, unspecified; M10.071 Idiopathic gout, right ankle and foot; E29.1 Testicular hypofunction; F41.9 Anxiety disorder, unspecified; F10.10 Alcohol abuse, uncomplicated; F17.210 Nicotine dependence, cigarettes, uncomplicated
CPT/HCPCS: 43239; J7120